=== PATIENT | female | born 1975 | race Caucasian/White ===

== ENCOUNTER 2023-04-06 11:45 | Outpatient (CLI) | payer OTHER, SELFPAY | END 2023-04-06 11:46 | disposition home or self-care (01) | PROVIDERS: PCP Nurse Practitioner Family; Visit Provider Nurse Practitioner Family | DX: I10 Essential (primary) hypertension (principal); E66.9 Obesity, unspecified; E78.5 Hyperlipidemia, unspecified | CPT/HCPCS: 80053; 80061 ==

== ENCOUNTER 2023-05-19 06:17 | Outpatient (CLI) | payer OTHER, SELFPAY ==
--- NOTE | 2023-05-19 06:44 | W.ANESCHARGE ---
Anesthesia Charges Start Date/Time Anesthesia Start Date: 05/19/23 Anesthesia Start Time: 07:02 Stop Date/Time Anesthesia Stop Date: 05/19/23 Anesthesia Stop Time: 07:35
--- NOTE | 2023-05-19 06:44 | PM.ANHP ---
HPI - Pre-Anesthesia History of Present Illness Time Seen by Provider: 06:54 Date Seen: 05/19/23 Date of service: 05/19/23 Reason for visit: screening colonoscopy Source: old records reviewed Review of Systems Status of ROS Reports: 6 or more systems reviewed and unremarkable except as noted in History and below PFS PFS Family History Father Cardiovascular disease Social History (Updated 04/06/23 @ 12:38 by Naomi Mazariegos CNP) Physical activity type: walking and bicycling How many days of moderate to strenuous exercise, like a brisk walk, did you do in the last 7 days: 5 Smoking Status: Current every day smoker Do you use any of these nicotine containing products: Vaping Products Second hand tobacco smoke exposure: No How often do you have a drink containing alcohol: never AUDIT-C Alcohol total score: 0 Non-prescribed substance use: denies use Caffeine: Yes Little interest or pleasure in doing things: several days Feeling down, depressed, or hopeless: several days Meds Home Medications and Allergies Allergies Allergy/AdvReac Type Severity Reaction Status Date / Time No Known Allergy Allergy Unknown Unknown Uncoded 04/05/23 12:35 Exam Const Documenting provider has reviewed patient's vital signs: yes Common normals: no apparent distress, oriented x3, healthy appearing, alert and well nourished General appearance: cooperative and comfortable Orientation/consciousness: Yes awake HENMT Common normals: normocephalic Head and scalp: normocephalic Neck & C-Spine Common normals: full ROM Chest Chest: symmetrical chest wall rise Resp Common normals: normal respiratory effort, no retractions, no use of accessory muscles and clear to auscultation bilaterally Auscultation: clear to auscultation bilaterally Cardio Common normals: regular rate, regular rhythm, S1 normal heart sound, S2 normal heart sound and no murmurs Rate: regular rate Rhythm: regular rhythm Heart sounds: S1 normal and S2 normal Neuro Common normals: oriented x3 Sensorium/orientation: awake and alert Assessment and Plan Assessment and plan (1) Colonoscopy planned: Status: Acute Plan ok to proceed with sedation for colonoscopy
--- NOTE | 2023-05-19 07:40 | W.ANESCHARGE ---
Anesthesia Charges Start Date/Time Anesthesia Start Date: 05/19/23 Anesthesia Start Time: 07:02 Stop Date/Time Anesthesia Stop Date: 05/19/23 Anesthesia Stop Time: 07:35
== END 2023-05-19 06:18 | disposition home or self-care (01) ==
PROVIDERS: PCP Nurse Practitioner Family; Visit Provider Internal Medicine
DX: Z12.11 Encounter for screening for malignant neoplasm of colon (principal); K64.9 Unspecified hemorrhoids; K62.1 Rectal polyp; C18.2 Malignant neoplasm of ascending colon; K56.690 Other partial intestinal obstruction
CPT/HCPCS: 45380; 45381; 45385; 811; 88305; J2704

== ENCOUNTER 2023-06-03 11:55 | Outpatient (CLI) | payer OTHER, SELFPAY ==
[2023-06-06 20:43] LABS: Carcinoembryonic Antigen 3.6 ng/mL (<=3.8)
== END 2023-06-03 11:56 | disposition home or self-care (01) ==
PROVIDERS: PCP Nurse Practitioner Family; Visit Provider Student in an Organized Health Care Education/Training Program
DX: K63.89 Other specified diseases of intestine (principal)
CPT/HCPCS: 36415; 82378

== ENCOUNTER 2023-06-21 07:25 | Outpatient (CLI) | payer OTHER, SELFPAY ==
--- NOTE | 2023-06-21 08:00 | CRLHL7_ITS ---
For Patients: As a result of the Century Cures Act, medical imaging exams and procedure reports are released immediately into your electronic medical record. You may view this report before your referring provider. If you have questions, please contact your health care provider. INDICATION: Colon mass seen on colonoscopy. Evaluate for metastasis.. TECHNIQUE: CT chest, abdomen and pelvis acquired with 106 cc Omnipaque 350 IV contrast. COMPARISON: None. FINDINGS: 2.2 by 1.5 by 2.2 centimeter soft tissue nodule is seen in the anterior superior mediastinum just below thyroid which may represent an enlarged mediastinal lymph node. Heart is normal in size. No pericardial or pleural effusion. No enlarged axillary or hilar adenopathy. No other enlarged mediastinal lymph nodes. Lungs are clear. No suspicious bony lesion in the bony thorax. Liver is top-normal in size measuring 20 centimeters in craniocaudal dimension. There are at least 5 small hypoenhancing lesions in the liver, the largest in segment 2 measuring 8 millimeters. Spleen, pancreas, adrenals and kidneys are within normal limits. Status post cholecystectomy. No enlarged retroperitoneal or pelvic adenopathy. The uterus is present with a large fibroid in the right posterior lateral uterus approximately measuring 5.3 x 5.6 by 4.8 centimeter. Urinary bladder is within normal limits. No abnormally dilated bowel loops to suggest bowel obstruction. There is a enhancing mass in the ascending colon measuring 5.4 x 4.0 by 4.6 centimeter. There is no pericolonic invasion. Appendix is not visualized. Normal terminal ileum. No suspicious bony lesion in the abdomen or pelvis. IMPRESSION: Proximal ascending colonic mass correlates with reported history of colon mass. At least 5 subcentimeter hypo enhancing liver lesions concerning for metastasis. MRI abdomen with IV contrast recommended for better evaluation. Anterior superior mediastinal nodule remains indeterminate may be an enlarged lymph node. Consider ultrasound-guided biopsy. Other findings as described above. Please note that all CT scans at this facility use dose modulation, iterative reconstruction, and/or weight-based dosing when appropriate to reduce radiation dose to as low as reasonably achievable. Dictated by Gera Valadez MD @ 06/21/2023 10:45:25 AM (Electronically Signed)
== END 2023-06-21 07:26 | disposition home or self-care (01) ==
LOC: CT 07:26
PROVIDERS: PCP Nurse Practitioner Family; Visit Provider Student in an Organized Health Care Education/Training Program
DX: K63.89 Other specified diseases of intestine (principal); K76.9 Liver disease, unspecified
CPT/HCPCS: 71260; 74177; Q9967

== ENCOUNTER 2023-07-06 09:31 | Outpatient (CLI) | payer OTHER, SELFPAY ==
--- OUTSIDE RECORDS SUMMARY | 2023-07-06 09:33 | XMS_ITS | Continuity of Care Document ---
Author Name Unknown Organization [facility] Address [address] [place] [address] Phone Care Team Providers Care Internal Communications Specialist Name Role Phone Colton Zimmer Unavailable Unavailable Medications Medication Instructions Dosage Effective Dates (start - stop) Status Comments prednisone 20 mg tablet 1 tab BID 5 days, 1 tablet QAM 5days - Active Procedures Procedure Date Office/Outpatient Visit,[facility] 2018 Results Test Name Date and Time Measure Units Reference Range Abnormal Flag Status Comments Panel Description: PA/Lateral Full Spine Unknow n PALatFS 18:40:33 (See Attached Document) Unknown (See Attached Document) Panel Description: PA/Lateral Full Spine Unknow n Image PA/Lateral Full Spine Advance Directives Directive Yes / No Effective Date File Name No Information Encounters Encounter Description Practice Location Reason(s) For Visit Diagnoses Date Provider Providers Copied on Encounter Office/Outpat ient Visit,, [facility], [address], [place], [place], [id number], [place] tel:[phone] [facility] [place] [facility] Gi[facility]pe Segura. [facility] [place], [address], [place], [place], [id number], [place]. tel:[phone] Referring Provider: Colton Chin, [facility] [address], [place], [address]. tel:[phone] Family History Family Member Type Diagnosis Age At Onset No Information Payers Payer name Insurance type Covered green party ID Noah nation(s) [facility] [id number] Social History Type Description Quantity Date Captured Comments Alcohol Use Details Unknown Caffeine Use Details Unknown Tobacco Use Status Occasional cigarette smoker Smoking Status Heavy tobacco smoker Smoking Tobacco Use Details Cigarette: No Details Available Cigarette: 1 Packs per day Sex Female Vital Signs Date / Time: Height Weight BMI Pulse Rate Blood Pressure Temperature Respiratory Rate Body Surface Area Head Circumference Head Circ. Percentile Wt./Gil. Percentile BMI percentile Pulse Ox Inhaled Ox 1:07 PM 65.50 in 93.803 kg (206.80 lbs) 33.8 9 kg/m eter (2) 85 /min 131/86 mm[Hg] Chief Complaint And Reason For Visit No Information Reason For Referral Reason For Referral No Information History Of Present Illness Encounter Date Complaint History Of Prese nt Illness No Information Functional Status Date Functional Assessmen t No Information Instructions Date Instruction Additional Infor mation No Information Assessments Type Assessment Date assessment Cervicalgia Patient Care Teams Name Effective Dates (start - stop) Status Members No Information
== END 2023-07-06 09:32 | disposition home or self-care (01) ==
PROVIDERS: PCP Nurse Practitioner Family; Visit Provider Nurse Practitioner Family
DX: Z01.818 Encounter for other preprocedural examination (principal)
CPT/HCPCS: 80048

== ENCOUNTER 2023-07-07 10:01 | Outpatient (CLI) | payer OTHER, SELFPAY ==
--- OUTSIDE RECORDS SUMMARY | 2023-07-07 10:03 | XMS_ITS | Continuity of Care Document ---
Author Name Unknown Organization [facility] Address [address] [place] [address] Phone Care Team Providers Care Commercial Painter Name Role Phone Colton Zimmer Unavailable Unavailable Medications Medication Instructions Dosage Effective Dates (start - stop) Status Comments prednisone 20 mg tablet 1 tab BID 5 days, 1 tablet QAM 5days - Active Procedures Procedure Date Office/Outpatient Visit,[facility] 2018 Results Test Name Date and Time [...] Providers Copied on Encounter Office/Outpat ient Visit,, [facility], [address], [place], [place], [id number], [place] tel:[phone] [facility] [place] [facility] Giuseppe Segura. [facility] [place], [address], [place], [place], [id number], [place]. tel:[phone] Referring Provider: Colton Chin, [facility] [address], [place], [address]. tel:[phone] Family History Family Member Type Diagnosis Age At Onset No Information Payers Payer name Insurance type Covered green party ID Noah nation(s) [facility] [id number] Social History Type Description Quantity Date Captured [...]
--- NOTE | 2023-07-07 10:15 | CRLHL7_ITS ---
For Patients: As a result of the Century Cures Act, medical imaging exams and procedure reports are released immediately into your electronic medical record. You may view this report before your referring provider. If you have questions, please contact your health care provider. INDICATION: Mass ascending colon ; Liver lesions. COMPARISON: CT chest, abdomen and pelvis with intravenous contrast June 21, 2023. TECHNIQUE: MRI of the abdomen without and with intravenous contrast; Precontrast T1 and T2 weighted imaging; T2 haste imaging ; Diffusion-weighted imaging; in and out of phase imaging; postcontrast imaging; 15 cc of Dotarem contrast was injected. FINDINGS: Multiple liver lesions. An 8 mm lesion identified in segment 2 of the liver. A 7 mm lesion in the dome of the liver and. A 6 mm lesion identified in segment 7 of the liver. A 5 mm lesion in segment 2 of the liver. All the lesions have high signal on the precontrast T2 haste imaging without any evidence of restriction of diffusion. No obvious postcontrast enhancement identified. No splenic pathology. No pancreatic pathology. Gallbladder appears small. No adrenal pathology. Kidneys are unremarkable. Mass identified in the right colon. IMPRESSION: Multiple liver lesions; indeterminate; no obvious enhancement postcontrast administration; in a patient with presumed colon carcinoma, metastatic disease is still a consideration and a PET-CT is suggested for further assessment. Dictated by Eduardo Pierce MD @ 07/13/2023 5:18:35 AM (Electronically Signed)
--- NOTE | 2023-07-07 11:15 | CRLHL7_ITS ---
For Patients: As a result of the Century Cures Act, medical imaging exams and procedure reports are released immediately into your electronic medical record. You may view this report before your referring provider. If you have questions, please contact your health care provider. INDICATION : History of colon mass. Indeterminate liver lesions. CT chest demonstrated a circumscribed solid mass in the lower midline of the neck. Patient presents for FNA. TECHNIQUE : Due to the deep position of the nodule, FNA could not be performed safely. Comparison : CT 06/21/2023 FINDINGS : There is a solid circumscribed heterogeneously hypoechoic solid nodule with small cystic areas in the midline of the lower neck inferior to the thyroid measuring 3.1 x 1.8 x 2.7 cm. 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 Unfortunately, due to the deep position the nodule, FNA could not be performed safely. Dictated by Kwame Maldonado MD @ 07/07/2023 12:29:35 PM (Electronically Signed)
== END 2023-07-07 10:02 | disposition home or self-care (01) ==
LOC: MRI 10:02
PROVIDERS: PCP Nurse Practitioner Family; Visit Provider Student in an Organized Health Care Education/Training Program
DX: K63.89 Other specified diseases of intestine (principal); K76.9 Liver disease, unspecified; R19.09 Other intra-abdominal and pelvic swelling, mass and lump; R22.1 Localized swelling, mass and lump, neck; E04.1 Nontoxic single thyroid nodule
CPT/HCPCS: 10005; 74183; A9575

== ENCOUNTER 2024-09-06 09:41 | Outpatient (CLI) | payer OTHER, SELFPAY ==
--- OUTSIDE RECORDS SUMMARY | 2024-09-06 09:44 | XMS_ITS | Referral Summary ---
Author Organization [facility] Address [address] [place] [address] Care Team Providers Care [employer] Developer Name Role Phone Naomi Mazariegos NP Primary Care Provider [phone] Encounters Date Type Department Care Team Description 07/30/2024 7:20 AM CDT - 07/30/2024 8:05 AM CDT Surgery [facility] [address] [place] [address] Tasha Fleming MD Colonoscopy with biopsies and polypectomy using forceps 07/30/2024 6:36 AM CDT - 07/30/2024 8:41 AM CDT Hospital Encounter [facility] [address] [place] [address] Tasha Fleming MD Discharge Disposition: Home or Self Care 07/22/2024 Travel from Last 3 Months Allergies No known active allergies Medications oxyCODONE (ROXICODONE) 5 MG tabletIndication s:Polyp of ascending colon, unspecified type Take 1 tablet (5 mg) by mouth every 6 hours as needed for moderate to severe pain 10 tablet Active Additional Information Patient not taking.Reported on 07/30/2024 Active Problems Problem Noted Date Diagnosed Date Polyp of ascending colon 07/19/2023 Social History Tobacco Use Types Packs/Day Years Used Date Smoking Tobacco: Former Other Q uit: 06/26/2023 Smokeless Tobacco: Never Tobacco Cessation:Counseling Given: Not Answered Comments:Vaping products used Alcohol Use Standard Drinks/Week Comments Never 0 (1 standard drink = 0.6 oz pur e alcohol) Adolescent Education Answer Date Record ed Getting School Help Needed Not on file 07/22 Interpersonal Safety Answer Date Record ed Do you feel physically and e motionally safe where you currently live? Yes 07/30/2024 Within the past 12 months, h ave you been hit, slapped, kicked or otherwise physically hurt by someone? No 07/30/2024 Within the past 12 months, h ave you been humiliated or emotionally abused in other ways by your partner or ex-partner? No 07/30/2024 Comments No Sex and Gender Information Value Date Recorded Sex Assigned at Not on file Legal Sex Female 10:26 AM CDT Gender Identity Not on file Sexual Orientation Not on file Last Filed Vital Signs Vital Sign Reading Time Taken Comments Blood Pressure 121/77 07/30/2024 8:35 AM CDT Pulse 81 07/30/2024 8:30 AM CDT Temperature 36.9 ??C (98.4 ??F) 07/21/2023 8:45 AM CD T Respiratory Rate 14 07/30/2024 8:35 AM CDT Oxygen Saturation 100% 07/30/2024 8:35 AM CDT Inhaled Oxygen Concentration - - Weight 90.9 kg (200 lb 8 oz) 07/19/2023 9:21 AM CDT Height 165.1 cm (5' 5) 07/19/2023 9:21 AM CDT Body Mass Index 33.36 07/19/2023 9:21 AM CDT Plan of Treatment Not on file Procedures Procedure Name Priority Date/Time Associated Diagnosis Comments SURGICAL PATHOLOGY EXAM Routine 07/30/2024 7:54 AM CDT COLONOSCOPY, WITH POLYPECTOMY AND BIOPSY 07/30/2024 7:35 AM CDT Screening for colon cancer Personal history of colonic polyps COLONOSCOPY Routine 07/30/2024 7:14 AM CDT GLUCOSE BY METER Routine 07/21/2023 6:20 AM CDT from Last 3 Months or Most Recently Relevant to Health Maintenance Results * Surgical Pathology Exam (07/30/2024 7:54 AM CDT) Case Report Surgical Pathology Report ? Case: [id number] ? Authorizing Provider: ??Tasha Fleming MD ?? Collected: ? 07/30/2024 07:54 AM ? Ordering Location: ? [facility] ?Received: ?07/30/2024 08:14 AM ? [facility] ? Pathologist: ? Isis, Edgardo Tavarez, ? MD ? Specimens: ?? A) - Large Intestine, Colon, Random colon biopsy r/o microscopic colitis ? B) - Large Intestine, Colon, Sigmoid, sigmoid polyp x1 ? 07/31/2024 11:30 AM [facility] Final Diagnosis A: Large intestine, random, biopsy: - Colonic mucosa without diagnostic abnormality. - No sufficient features of colitis (microscopic or otherwise), polyp, dysplasia, or malignancy. B: Large intestine, sigmoid, polyp, biopsy/polypect luba: - Hyperplastic polyp negative for dysplasia and malignancy. 07/31/2024 11:30 AM [facility] Clinical Information Procedure: Colonoscopy with biopsies and polypectomy using forceps 07/31/2024 11:30 AM [facility] Gross Description A(1). Large Intestine, Colon, Random colon biopsy r/o microscopic colitis: The specimen is received in formalin, labeled with the patient's name, medical record number and other identifying information and designated ? random colon biopsy rule out microscopic colitis? . It consists of 5 herrera soft tissue fragments ranging from 0.2-0.3 cm. Entirely submitted in one cassette. B(2). Large Intestine, Colon, Sigmoid, sigmoid polyp x1: The specimen is received in formalin, labeled with the patient's name, medical record number and other identifying information and designated ? sigmoid polyp x 1? . It consists of 2 herrera soft tissue fragments 0.1 cm. Entirely submitted in one cassette. (DIETER Lux (ASCP) 07/30/2024 9:38 AM 07/31/2024 11:30 AM [facility] Microscopic Description A microscopic examination is performed. 07/31/2024 11:30 AM [facility] Performing Labs The technical component of this testing was completed at [facility]. Stain controls for all stains resulted within this report have been reviewed and show appropriate reactivity. 07/31/2024 11:30 AM [facility] Case Images 07/31/2024 11:30 AM [facility] Biopsy COLON STRUCTURE / Unknown 07/30/2024 7:54 AM CDT 07/30/2024 8:14 AM CDT Polyp (morphologic abnormality) SIGMOID COLON PART / Unknown 07/30/2024 8:00 AM CDT 07/30/2024 8:14 AM CDT us Tasha Fleming MD LAB - ALEJANDRA Final Res ult LABORATORY [facility] [address] 1[address] floor, [address] [place] [address], [place] [phone] LABORATORY [facility] [address] [facility] ([facility] floor, no room number) [place] [address], [facility] * COLONOSCOPY (07/30/2024 7:14 AM CDT) [facility] COLONOSCOPY [facility] Patient Name: Jenny CazaresVal Tesfaye ? Procedure Date: 07/30/2024 7:14 AM ? Date of : 1975 ?Admit Type: Outpatient Age: 48 ? Gender: Female Attending MD: TASHA FLEMING MD, ??Total Sedation Time: 17 min continuous bedside 1:1 monitoring, IT 6 min, WT 11 min. Instrument Name: 257 - Pediatric Colonoscope Procedure: ?Colonoscopy Indications: ?High risk colon cancer surveillance: Personal ?history of colonic polyps, S/P laparoscopic right ?colectomy 06/2023. Providers: ?TASHA FLEMING MD (Doctor) Referring MD: ? Medicines: ?Midazolam 3 mg IV, Fentanyl 100 micrograms IV Complications: ?No immediate complications. Procedure: ?Pre-Anesthesia Assessment: ?- Prior to the procedure, a History and Physical ?was performed, and patient medications and ?allergies were reviewed. The patient's tolerance of ?previous anesthesia was also reviewed. The risks ?and benefits of the procedure and the sedation ?options and risks were discussed with the patient. ?All questions were answered, and informed consent ?was obtained. Prior Anticoagulants: The patient has ?taken no anticoagulant or antiplatelet agents. ASA ?Grade Assessment: II - A patient with mild systemic ?disease. After reviewing the risks and benefits, ?the patient was deemed in satisfactory condition to ?undergo the procedure. ?- Prior to the procedure, a History and Physical ?was performed, and patient medications, allergies ?and sensitivities were reviewed. The patient's ?tolerance of previous anesthesia was reviewed. ?- The risks and benefits of the procedure and the ?sedation options and risks were discussed with the ?patient. All questions were answered and informed ?consent was obtained. ?- Patient identification and proposed procedure ?were verified prior to the procedure by the ?physician. The procedure was verified in the ?endoscopy suite. ?- Pre-procedure physical examination revealed no ?contraindication s to sedation. ?- The heart rate, respiratory rate, oxygen ?saturations, blood pressure, adequacy of pulmonary ?ventilation, and response to care were monitored ?throughout the procedure. ?- The physical status of the patient was ?re-assessed after the procedure. ?After obtaining informed consent, the colonoscope ?was passed under direct vision. Throughout the ?procedure, the patient's blood pressure, pulse, and ?oxygen saturations were monitored continuously. The ?Olympus Pediatric Colonoscope Model # [id number]-DR714L, ?Censitrac # [id number] was introduced through the ?anus and advanced to the ileocolonic anastomosis. ?The colonoscopy was performed without difficulty. ?The patient tolerated the procedure well. The ?quality of the bowel preparation was good. ? Findings: ? The perianal and digital rectal examinations were normal. Pertinent ? negatives include normal sphincter tone and no palpable rectal lesions. ? The shannon-terminal ileum appeared normal. ? A 2 mm polyp was found in the sigmoid colon. The polyp was sessile. The ? polyp was removed with a cold biopsy forceps. Resection and retrieval ? were complete. Estimated blood loss was minimal. ? There was evidence of a prior functional end-to-end ileo-colonic ? anastomosis in the transverse colon. This was patent and was ? characterized by healthy appearing mucosa and an intact staple line. The ? anastomosis was traversed. ? The colon (entire examined portion) appeared normal. Biopsies for ? histology were taken with a cold forceps from the entire colon for ? evaluation of microscopic colitis. Estimated blood loss was minimal. ? Non-bleeding internal hemorrhoids were found during retroflexion. ? The exam was otherwise without abnormality on direct and retroflexion ? views. ? Impression: ? - The examined portion of the ileum was normal. ?- One 2 mm polyp in the sigmoid colon, removed with ?a cold biopsy forceps. Resected and retrieved. ?- Patent functional end-to-end ileo-colonic ?anastomosis, characterized by healthy appearing ?mucosa and an intact staple line. ?- The entire examined colon is normal. Biopsied. ?- Non-bleeding internal hemorrhoids. ?- The examination was otherwise normal on direct ?and retroflexion views. Recommendation: ? - Discharge patient to home. ?- Resume previous diet. ?- Continue present medications. ?- Await pathology results. ?- Repeat colonoscopy in 3 years for surveillance ?based on pathology results. ?- Return to my office at appointment to be ?scheduled to management of hemorrhoids ? Procedure Code(s): ? --- Professional --- ? 88913, Colonoscopy, flexible; with biopsy, single or multiple CPT copyright 2021 [employer]. All rights reserved. The codes documented in this report are preliminary and upon mmd unit teacher review may be revised to meet current compliance requirements. TASHA FLEMING MD 07/30/2024 8:14:17 AM I was physically present for the entire viewing portion of the exam. TASHA FLEMING MD Number of Addenda: 0 Note Initiated On: 07/30/2024 7:14 AM MRN: ?[id number] Procedure Date: ? 07/30/2024 7:14:27 AM Scope Withdrawal Time: 0 hours 11 minutes 30 seconds Total Procedure Duration: 0 hours 16 minutes 47 seconds Estimated Blood Loss: ? Scope In: 7:45:59 AM Scope Out: 8:02:46 AM RADIOLOGY RESULTS 07/30/2024 7:14 AM CDT us Tasha Fleming MD PROCEDURES Final Res ult RADIOLOGY RESULTS * Glucose by meter (07/21/2023 6:20 AM CDT) [facility] GLUCOSE BY METER POCT 93 70 - 99 mg/dL 07/21/2023 6:28 AM CDT LABORATORY POC Blood, Capillary BLOOD SPECIMEN / Unknown 07/21/2023 6:20 AM CDT 07/21/2023 6:28 AM CDT us Tasha Fleming MD LAB - BEAKER POCT Final R esult LABORATORY POC [facility] [address] 1[address] floor, [address] [place] [address], [facility] [phone] from Last 3 Months or Most Recently Relevant to Health Maintenance Insurance [facility] Address: [id number] [place] [address] [place] [address] [facility] Address: [address] [address] Advance Directives For more information, please contact: [phone] * Full Code (Latest Code Status on File) Date Activated Date Inactivated Comments 07/19/2023 4:02 PM 07/21/2023 4:23 PM All basic an d advanced life-sustaining interventions are performed as appropriate Question Answer Comments Code status determined by: Discussion with patie nt/ legal decision maker Care Teams [employer] Developer Relationship Specialty Start Date End Date Naomi Mazariegos NP [facility] [address] [place] [address] PCP - General Nurse Practitioner - Family 07/18/23
--- OUTSIDE RECORDS SUMMARY | 2024-09-06 09:44 | XMS_ITS | Encounter Summary ---
Author Organization [facility] Address [address] [place] [address]. [place] [address] Care Team Providers Care Drapery Examiner Name Role Phone Naomi Mazariegos ENVIRONMENTAL MARKETER Primary Care Provider [phone] Reason for Visit * Auth/Cert Specialty Diagnoses / Procedures Referred By Terese pandey Referred To Contact Gastroenterology Diagnoses Screening for colon cancer Personal history of colonic polyps Screening for colon cancer [Z12.11] Personal history of colonic polyps [Z86.0100] Procedures MI COLONOSCOPY W/WO BRUSH/WASH Colonoscopy [facility] [address] [place] [address] Phone: tel:[phone] fax: Referral ID Status Reason Start Date Expiration Date Visits Re quested Visits Authorized [id number] 1 1 Encounter Details Date Type Department Care Team (Late st Contact Info) Description 07/30/2024 7:20 AM CDT - 07/30/2024 8:05 AM CDT Surgery [facility] [address] [place] [address] Tasha Fleming MD COLO & RECTAL SURGERY [address] [address] Colonoscopy with biopsies and polypectomy using forceps Surgery Details Date/Time Status Location OR Service Patient Class Case Cl ass Case Type Trauma Case? 07/30/2024 7:20 AM Posted GI GI B [facility]-Rectal Outpatient Elective Panel 1 Procedure LRB Anes Op Region Wound Class Comments Colonoscopy with biopsies and polypectomy using forceps N/A Moderate Sedation Rectum II-Clean Contaminated Surgeon Surgeon Role Service Panel Tasha Fleming MD Primary Strawn-Rectal 1 documented in this encounter Social History Tobacco Use Types Packs/Day Years Used Date Smoking Tobacco: Former Other Q uit: 06/26/2023 Smokeless Tobacco: Never Comments:Vaping products use d Alcohol Use Standard Drinks/Week Comments Never 0 [...] on file Sexual Orientation Not on file documented as of this encounter Last Filed Vital Signs Vital Sign Reading Time Taken Comments Blood Pressure 149/95 07/30/2024 8:03 AM CDT Pulse 87 07/30/2024 8:03 AM CDT Temperature - - Respiratory Rate 16 07/30/2024 8:03 AM CDT Oxygen Saturation 100% 07/30/2024 8:03 AM CDT Inhaled Oxygen Concentration - - Weight - - Height - - Body Mass Index - - documented in this encounter Discharge Instructions * Discharge Instructions* Aleta Meyers RN - 07/30/2024 8:11 AM CDT The patient has received a copy of the Provation report the doctor has written and discharge instructions have been discussed with the patient and responsible adult. All questions were addressed and answered prior to patient discharge. * Attachments The following attachments cannot be sent through Care Everywhere. * Colon Polyps (Mosotho) * Hemorrhoids: Rubber Band Ligation: General Info (Mosotho) documented in this encounter Medications at Time of Discharge oxyCODONE (ROXICODONE) 5 MG tabletIndications :Polyp of ascending colon, unspecified type Take 1 tablet (5 mg) by mouth every 6 hours as needed for moderate to severe pain 10 tablet 07/21/2023 documented as of this encounter H&P Notes * Tasha Fleming MD - 07/30/2024 7:04 AM CDT Pre-Endoscopy History and Physical Jenny De La Vega Date of : 1975 Age: [age] year old Date of Procedure: 07/30/2024 Primary care provider: Naomi Mazariegos Type of Endoscopy: Colonoscopy Reason for Procedure: H/O polyps Type of Anesthesia Anticipated: Moderate Sedation HPI: Jenny is a 48 year old female who will be undergoing the above procedure. A history and physical has been performed. The patient's medications and allergies have been reviewed. The risks and benefits of the procedure and the sedation options and risks were discussed with the patient. All questions were answered and informed consent was obtained. She denies a personal or family history of anesthesia complications or bleeding disorders. No Known Allergies No current facility-administered medications for this encounter. Patient Active Problem List Diagnosis Polyp of ascending colon Past Medical History: Diagnosis Date Anxiety disorder Essential hypertension, malignant General counseling and advice for contraceptive management Hyperlipidemia Internal hemorrhoids Obesity, unspecified Primary female infertility S/P VSD repair Tobacco use disorder Past Surgical History: Procedure Laterality Date ABDOMEN SURGERY CARDIAC SURGERY 1990 COLONOSCOPY COLONOSCOPY N/A 07/18/2023 Procedure: Colonoscopy with biopsies using jumbo bx forcep; Surgeon: Tasha Fleming MD; Location: GI LAPAROSCOPIC ASSISTED COLECTOMY Right 07/19/2023 Procedure: Laparoscopic Assisted Right Colectomy; Surgeon: Tasha Fleming MD; Location: OR Social History Tobacco Use Smoking status: Former Types: Other Quit date: 06/26/2023 Years since quittin.0 Smokeless tobacco: Never Tobacco comments: Vaping products used Substance Use Topics Alcohol use: Never Family History Problem Relation Age of Onset Colon Cancer No family hx of REVIEW OF SYSTEMS: 5 point ROS negative except as noted above in HPI, including Gen., Resp., CV, GI & system review. PHYSICAL EXAM: There were no vitals taken for this visit. Estimated body mass index is 33.36 kg/m?? as calculated from the following: Height as of 07/19/23: 1.651 m (5' 5). Weight as of 07/19/23: 90.9 kg (200 lb 8 oz). GENERAL APPEARANCE: healthy and alert MENTAL STATUS: alert AIRWAY EXAM: Mallampatti Class I (visualization of the soft palate, fauces, uvula, anterior and posterior pillars) RESP: lungs clear to auscultation - no rales, rhonchi or wheezes CV: regular rates and rhythm IMPRESSION ASA Class 2 - Mild systemic disease PLAN: Plan for colonoscopy. We discussed the risks, benefits and alternatives and the patient wished to proceed. The above has been forwarded to the consulting provider. Katy Fleming MD [facility] July 30, 2024 documented in this encounter Plan of Treatment Not on file documented as of this encounter Procedures Procedure Name Priority Date/Time Associated Diagnosis Comments SURGICAL PATHOLOGY EXAM Routine 07/30/2024 7:54 AM CDT COLONOSCOPY, WITH POLYPECTOMY AND BIOPSY 07/30/2024 7:35 AM CDT Screening for colon cancer Personal history of colonic polyps COLONOSCOPY Routine 07/30/2024 7:14 AM CDT documented in this encounter Results * Surgical Pathology Exam (07/30/2024 7:54 AM CDT) Case Report Surgical Pathology Report ? Case: [id number] ? Authorizing Provider: ??Tasha Fleming MD ?? Collected: ? 07/30/2024 07:54 AM ? Ordering Location: ? [facility] ?Received: ?07/30/2024 08:14 AM ? [facility] ? Pathologist: ? Edgardo Marinelli, ? MD ? Specimens: ?? A) - Large Intestine, Colon, Random colon biopsy r/o microscopic colitis ? B) - Large Intestine, Colon, Sigmoid, sigmoid polyp x1 ? 07/31/2024 11:30 AM CDT LABORATORY Final Diagnosis A: Large intestine, random, biopsy: - Colonic mucosa without diagnostic abnormality. - No sufficient features of colitis (microscopic or otherwise), polyp, dysplasia, or malignancy. B: Large intestine, sigmoid, polyp, biopsy/polypect luba: - Hyperplastic polyp negative for dysplasia and malignancy. 07/31/2024 11:30 AM CDT LABORATORY Clinical Information Procedure: Colonoscopy with biopsies and polypectomy using forceps 07/31/2024 11:30 AM T LABORATORY Gross Description A(1). Large Intestine, Colon, [...] cm. Entirely submitted in one cassette. (DIETER Lxu (ASCP) 07/30/2024 9:38 AM 07/31/2024 11:30 AM CDT LABORATORY Microscopic Description A microscopic examination is performed. 07/31/2024 11:30 AM T LABORATORY Performing Labs The technical component of this testing was completed at [facility]. Stain controls for all stains resulted within this report have been reviewed and show appropriate reactivity. 07/31/2024 11:30 AM CDT LABORATORY Case Images 07/31/2024 11:30 AM T LABORATORY Biopsy COLON STRUCTURE / Unknown 07/30/2024 7:54 AM CDT 07/30/2024 8:14 AM CDT Polyp (morphologic abnormality) SIGMOID COLON PART / Unknown 07/30/2024 8:00 AM CDT 07/30/2024 8:14 AM CDT us Tasha WAHL - ALEJANDRA AUSTIN Final Res ult LABORATORY [facility] [address] 1[address] floor, [address] [place] [address], [place] [phone] LABORATORY [facility] [address] [facility] (1st floor, no room number) [place] [id number], [facility] * COLONOSCOPY (07/30/2024 7:14 AM CDT) [facility] COLONOSCOPY [facility] Patient Name: Jenny De La Vega ? Procedure Date: 07/30/2024 7:14 AM ? [...] continuously. The ?Olympus Pediatric Colonoscope Model # PCF-KC425L, ?[facility] # [id number] was introduced through the ?anus and advanced [...] Procedure Code(s): ? --- Professional --- ? 06595, Colonoscopy, flexible; with biopsy, single or multiple CPT copyright 2021 [employer]. All rights reserved. The codes documented in this report are preliminary and upon central office repairer supervisor review may be revised to meet current compliance requirements. TASHA FLEMING MD 07/30/2024 8:14:17 AM I was physically present for the entire viewing portion of the exam. TASHA FLEMING MD Number of Addenda: 0 Note Initiated On: 07/30/2024 7:14 AM MRN: ?[id number] Procedure Date: ? 07/30/2024 7:14:27 AM Scope Withdrawal Time: 0 hours 11 minutes 30 seconds Total Procedure Duration: 0 hours 16 minutes 47 seconds Estimated Blood Loss: ? Scope In: 7:45:59 AM Scope Out: 8:02:46 AM RADIOLOGY RESULTS 07/30/2024 7:14 AM CDT us Tasha Fleming MD PROCEDURES Final Res ult RADIOLOGY RESULTS documented in this encounter Visit Diagnoses Diagnosis Screening for colon cancer Special screening for malignant neoplasms, colon Personal history of colonic polyps documented in this encounter Administered Medications Inactive Administered Medications - up to 3 most recent administrations Medication Order MAR Action Action Date Dose Rate Site atropine injection 1 mg 1 mg, Intravenous, ONCE PRN, other, Bradycardia, Starting on Mon07/30/24 at 0737, For 1 dose, Intra-procedure benzocaine 20% (HURRICAINE/TOPEX) 20 % spray 0.5 mL 0.5 mL (1 spray), Mouth/Throat, ONCE PRN, sore throat, Starting on Mon07/30/24 at 0737, For 1 dose, Ledbetter throat with 1 spray 5 minutes prior to procedure., Intra-procedure diphenhydrAMINE (BENADRYL) injection 25-50 mg 25-50 mg, Intravenous, ONCE PRN, other, for sedations, dose per provider direction., Administer over 1-2 Minutes, Starting on Mon07/30/24 at 0737, For 1 dose, Intra-procedure EPINEPHrine (Anaphylaxis) (ADRENALIN) injection (vial) 0.1 mg 0.1 mg, Submucosal, ONCE PRN, bleeding, Starting on Mon07/30/24 at 0737, For 1 dose, RN to dilute 1 mL (1 mg) of EPINEPHrine with 9 mL of 0.9% sodium chloride to equal a 0.1 mg/mL concentration. Inject 1 mL (0.1 mg) into submucosa via a sclerotherapy injection needle. Not for direct undiluted intravenous injection (1 mg/mL = 1:1000), Intra-procedure fentaNYL (PF) (SUBLIMAZE) injection 50-100 mcg 50-100 mcg, Intravenous, EVERY 5 MIN PRN, severe pain, If inadequate response may repeat every 3 min PRN severe pain; when verbally requested by provider., Starting on Mon07/30/24 at 0737, Doses can be exceeded under direct oversight of patient by physician., Intra-procedure $Given 07/30/2024 7:41 AM CDT 100 mcg flumazenil (ROMAZICON) injection 0.2 mg 0.2 mg, Intravenous, EVERY 1 MIN PRN, benzodiazepine reversal, If inadequate response after 45 seconds, may repeat 0.2 mg IV every 1 minute PRN over sedation., Administer over 1 Minutes, Starting on Mon07/30/24 at 0737, Give over 15 seconds. Maximum total dose of 1 mg. Continue monitoring until discharge criteria met for a minimum of 2 hours. Use with caution in patients on benzodiazepine therapy., Intra-procedure glucagon injection 0.5 mg 0.5 mg, Intravenous, ONCE PRN, other, gi motility, Starting on Mon07/30/24 at 0737, For 1 dose, Intra-procedure lidocaine (LMX4) cream Topical, EVERY 1 HOUR PRN, pain, with VAD insertion, Starting on Mon07/30/24 at 0810, Apply at least 30 minutes prior to VAD insertion in divided doses as needed for size of site for insertion. MAX Dose: 2.5 g (?? of 5 g tube) Do NOT give if patient has a history of allergy to any local anesthetic or any abigail product. Do NOT use both lidocaine intradermal/subcutaneous injection and the lidocaine cream on the same site., Pre-procedure lidocaine 1 % 0.1-1 mL 0.1-1 mL, Other, EVERY 1 HOUR PRN, mild pain with VAD insertion, Starting on Mon07/30/24 at 0810, MAX dose 1 mL subcutaneous OR intradermal along the side of the vein in divided doses as needed for VAD insertion. Do NOT give if patient has a history of allergy to any local anesthetic or any abigail product. Do NOT use both lidocaine intradermal/subcutaneous injection and the lidocaine cream on the same site., Pre-procedure midazolam (VERSED) injection 0.5-2 mg 0.5-2 mg, Intravenous, EVERY 4 MIN PRN, sedation, If inadequate response may repeat every 4 minutes PRN sedation until desired response; when verbally requested by provider., Starting on Mon07/30/24 at 0737, Doses can be exceeded under direct oversight of patient by physician. This drug may cause significant respiratory depression. Monitor respiratory status and vital signs carefully for 1 hour after each dose., Intra-procedure $Given 07/30/2024 7:46 AM CDT 1 mg $Given 07/30/2024 7:41 AM CDT 2 mg naloxone (NARCAN) injection 0.2 mg 0.2 mg, Intravenous, EVERY 2 MIN PRN, opioid reversal, Starting on Mon07/30/24 at 0737, Administer intravenous route when available and notify provider when administered. For unintended sedation or respiratory depression if all of the below criteria are met: ~ respiratory rate LESS than or EQUAL to 8. ~SaO2 less than 92% and or/end-tidal CO2 is greater than 50. ~ the patient is receiving an opioid, has unintended sedations assessed as RASS (-3), and is currently not on mechanical ventilation. RASS scale moderate (-3) is movement or eye opening to voice but no eye contact. Patient Monitoring Once the patient has demonstrated a response to the naloxone, continue to monitor respiratory rate, depth, oxygen saturation and end-tidal CO2 (if available) every 15 minutes x 2, then every 30 minutes x 2, then every 1 hour x 1 after each naloxone dose. Consider transfer to ICU if patient respiratory parameters have not improved after 4 naloxone doses., Intra-procedure naloxone (NARCAN) injection 0.2 mg 0.2 mg, Intramuscular, EVERY 2 MIN PRN, opioid reversal, Starting on Mon07/30/24 at 0737, Administer intramuscular if an intravenous route is not available and notify provider when administered. For unintended sedation or respiratory depression if all of the below criteria are met: ~ respiratory rate LESS than or EQUAL to 8. ~SaO2 less than 92% and or/end-tidal CO2 is greater than 50. ~ the patient is receiving an opioid, has unintended sedations assessed as RASS (-3), and is currently not on mechanical ventilation. RASS scale moderate (-3) is movement or eye opening to voice but no eye contact. Patient Monitoring Once the patient has demonstrated a response to the naloxone, continue to monitor respiratory rate, depth, oxygen saturation and end-tidal CO2 (if available) every 15 minutes x 2, then every 30 minutes x 2, then every 1 hour x 1 after each naloxone dose. Consider transfer to ICU if patient respiratory parameters have not improved after 4 naloxone doses., Intra-procedure naloxone (NARCAN) injection 0.4 mg 0.4 mg, Intravenous, EVERY 2 MIN PRN, opioid reversal, Starting on Mon07/30/24 at 0737, Administer intravenous route when available and notify provider when administered. For unintended sedation or respiratory depression if all of the below criteria are met: ~ respiratory rate LESS than or EQUAL to 8. ~ SaO2 less than 92% and or/end-tidal CO2 is greater than 50. ~ the patient is receiving an opioid, has unintended sedation assessed as RASS (-4) or (-5) and patient is currently not on mechanical ventilation. RASS scale (-4) is deep sedation with no response to voice but movement or eye opening to physical stimulation. RASS scale (-5) is unarousable. Patient Monitoring Once the patient has demonstrated a response to the naloxone, continue to monitor respiratory rate, depth, oxygen saturation and end-tidal CO2 (if available) every 15 minutes x 2, then every 30 minutes x 2, then every 1 hour x 1 after each naloxone dose. Consider transfer to ICU if patient respiratory parameters have not improved after 4 naloxone doses., Intra-procedure naloxone (NARCAN) injection 0.4 mg 0.4 mg, Intramuscular, EVERY 2 MIN PRN, opioid reversal, Starting on Mon07/30/24 at 0737, Administer intramuscular if an intravenous route is not available and notify provider when administered. For unintended sedation or respiratory depression if all of the below criteria are met: ~ respiratory rate LESS than or EQUAL to 8. ~ SaO2 less than 92% and or/end-tidal CO2 is greater than 50. ~ the patient is receiving an opioid, has unintended sedation assessed as RASS (-4) or (-5) and patient is currently not on mechanical ventilation. RASS scale (-4) is deep sedation with no response to voice but movement or eye opening to physical stimulation. RASS scale (-5) is unarousable. Patient Monitoring Once the patient has demonstrated a response to the naloxone, continue to monitor respiratory rate, depth, oxygen saturation and end-tidal CO2 (if available) every 15 minutes x 2, then every 30 minutes x 2, then every 1 hour x 1 after each naloxone dose. Consider transfer to ICU if patient respiratory parameters have not improved after 4 naloxone doses., Intra-procedure ondansetron (ZOFRAN ODT) ODT tab 4 mg 4 mg, Oral, EVERY 6 HOURS PRN, nausea, vomiting, Starting on Mon07/30/24 at 0810, This is Step 1 of nausea and vomiting management. If nausea not resolved in 15 minutes, go to Step 2 prochlorperazine (COMPAZINE). Do not push through foil backing. Peel back foil and gently remove. Place on tongue immediately. Administration with liquid unnecessary With dry hands, peel back foil backing and gently remove tablet. Do not push oral disintegrating tablet through foil backing. Administer immediately on tongue and oral disintegrating tablet dissolves in seconds, then swallow with saliva. Liquid not required. ondansetron (ZOFRAN) injection 4 mg 4 mg, Intravenous, ONCE PRN, nausea, vomiting, Administer over 2-5 Minutes, Starting on Mon07/30/24 at 0810, For 1 dose, Give in ENDO pre procedure prep area., Pre-procedure ondansetron (ZOFRAN) injection 4 mg 4 mg, Intravenous, EVERY 6 HOURS PRN, nausea, vomiting, Administer over 2-5 Minutes, Starting on Mon07/30/24 at 0810, This is Step 1 of nausea and vomiting management. If nausea not resolved in 15 minutes, go to Step 2 prochlorperazine (COMPAZINE). prochlorperazine (COMPAZINE) injection 10 mg 10 mg, Intravenous, EVERY 6 HOURS PRN, nausea, vomiting, Administer over 1-2 Minutes, Starting on Mon07/30/24 at 0810, This is Step 2 of nausea and vomiting management. If nausea not resolved in 15-30 minutes, Notify provider. prochlorperazine (COMPAZINE) tablet 10 mg 10 mg, Oral, EVERY 6 HOURS PRN, nausea, vomiting, Starting on Mon07/30/24 at 0810, This is Step 2 of nausea and vomiting management. If nausea not resolved in 15-30 minutes, Notify provider. simethicone (MYLICON) suspension 133 mg 133 mg, Oral, ONCE PRN, other, gas bubbles, Starting on Mon07/30/24 at 0737, For 1 dose, Give via endoscope, Intra-procedure $Given by Other 07/30/2024 7:52 AM CDT 133 mg sodium chloride (PF) 0.9% PF flush 3 mL 3 mL, Intracatheter, EVERY 8 HOURS, First dose on Mon07/30/24 at 0830, to lock peripheral IV dormant line, Pre-procedure sodium chloride (PF) 0.9% PF flush 3 mL 3 mL, Intracatheter, EVERY 1 MIN PRN, line flush, other, to ensure patency or to lock dormant line, Starting on Mon07/30/24 at 0810, Pre-procedure sodium chloride (PF) 0.9% PF flush 3 mL 3 mL, Intravenous, EVERY 1 MIN PRN, line flush, Starting on Mon07/30/24 at 0737, Indications: for Peripheral IV flush post IV meds, Intra-procedureIndications:for Peripheral IV flush post IV meds sodium chloride 0.9% BOLUS 500 mL Intravenous, 500 mL, ONCE PRN, at 500 mL/hr, Administer over 1 Hours, other, hypotension, Starting on Mon07/30/24 at 0737, For 1 dose, Intra-procedure documented in this encounter Active and Recently Administered Medications Times are shown in CDT. Scheduled Medication Order 07/28/2024 07/29/2024 07/30/2024 sodium chloride (PF) 0.9% PF flush 3 mL 3 mL, Intracatheter, EVERY 8 HOURS, First dose on Mon07/30/24 at 0830, to lock peripheral IV dormant line, Pre-procedure 0830 (Canceled Entry - Provider: Orders Generic Provider - Comment: Automatically canceled at discontinue of medication order) PRN Medication Order 07/28/2024 07/29/2024 07/30/2024 atropine injection 1 mg 1 mg, Intravenous, ONCE PRN, other, Bradycardia, Starting on Mon07/30/24 at 0737, For 1 dose, Intra-procedure benzocaine 20% (HURRICAINE/TOPEX) 20 % spray 0.5 mL 0.5 mL (1 spray), Mouth/Throat, ONCE PRN, sore throat, Starting on Mon07/30/24 at 0737, For 1 dose, Ledbetter throat with 1 spray 5 minutes prior to procedure., Intra-procedure diphenhydrAMINE (BENADRYL) injection 25-50 mg 25-50 mg, Intravenous, ONCE PRN, other, for sedations, dose per provider direction., Administer over 1-2 Minutes, Starting on Mon07/30/24 at 0737, For 1 dose, Intra-procedure EPINEPHrine (Anaphylaxis) (ADRENALIN) injection (vial) 0.1 mg 0.1 mg, Submucosal, ONCE PRN, bleeding, Starting on Mon07/30/24 at 0737, For 1 dose, RN to dilute 1 mL (1 mg) of EPINEPHrine with 9 mL of 0.9% sodium chloride to equal a 0.1 mg/mL concentration. Inject 1 mL (0.1 mg) into submucosa via a sclerotherapy injection needle. Not for direct undiluted intravenous injection (1 mg/mL = 1:1000), Intra-procedure fentaNYL (PF) (SUBLIMAZE) injection 50-100 mcg 50-100 mcg, Intravenous, EVERY 5 MIN PRN, severe pain, If inadequate response may repeat every 3 min PRN severe pain; when verbally requested by provider., Starting on Mon07/30/24 at 0737, Doses can be exceeded under direct oversight of patient by physician., Intra-procedure 0741 ($Given - Provi roz: Sue Sierra RN) flumazenil (ROMAZICON) injection 0.2 mg 0.2 mg, Intravenous, EVERY 1 MIN PRN, benzodiazepine reversal, If inadequate response after 45 seconds, may repeat 0.2 mg IV every 1 minute PRN over sedation., Administer over 1 Minutes, Starting on Mon07/30/24 at 0737, Give over 15 seconds. Maximum total dose of 1 mg. Continue monitoring until discharge criteria met for a minimum of 2 hours. Use with caution in patients on benzodiazepine therapy., Intra-procedure flumazenil (ROMAZICON) injection 0.2 mg 0.2 mg, Intravenous, EVERY 1 MIN PRN, benzodiazepine reversal, over sedation, Administer over 1 Minutes, Starting on Mon07/30/24 at 0810, For 12 hours, Give over 15 seconds. If inadequate response after 45 seconds, may repeat up to a MAX total dose of 1 mg. Continue monitoring until discharge criteria are met for a minimum of 2 hours Use with caution in patients on benzodiazepine therapy. glucagon injection 0.5 mg 0.5 mg, Intravenous, ONCE PRN, other, gi motility, Starting on Mon07/30/24 at 0737, For 1 dose, Intra-procedure lidocaine (LMX4) cream Topical, EVERY 1 HOUR PRN, pain, with VAD insertion, Starting on Mon07/30/24 at 0810, Apply at least 30 minutes prior to VAD insertion in divided doses as needed for size of site for insertion. MAX Dose: 2.5 g (?? of 5 g tube) Do NOT give if patient has a history of allergy to any local anesthetic or any abigail product. Do NOT use both lidocaine intradermal/subcutaneous injection and the lidocaine cream on the same site., Pre-procedure lidocaine 1 % 0.1-1 mL 0.1-1 mL, Other, EVERY 1 HOUR PRN, mild pain with VAD insertion, Starting on Mon07/30/24 at 0810, MAX dose 1 mL subcutaneous OR intradermal along the side of the vein in divided doses as needed for VAD insertion. Do NOT give if patient has a history of allergy to any local anesthetic or any abigail product. Do NOT use both lidocaine intradermal/subcutaneous injection and the lidocaine cream on the same site., Pre-procedure midazolam (VERSED) injection 0.5-2 mg 0.5-2 mg, Intravenous, EVERY 4 MIN PRN, sedation, If inadequate response may repeat every 4 minutes PRN sedation until desired response; when verbally requested by provider., Starting on Mon07/30/24 at 0737, Doses can be exceeded under direct oversight of patient by physician. This drug may cause significant respiratory depression. Monitor respiratory status and vital signs carefully for 1 hour after each dose., Intra-procedure 0741 ($Given - Provi roz: Sue Sierra RN)0746 ($Given - Provider: Sue Sierra RN) naloxone (NARCAN) injection 0.2 mg(Linked Group 1) 0.2 mg, Intravenous, EVERY 2 MIN PRN, opioid reversal, Starting on Mon07/30/24 at 0737, Administer intravenous route when available and notify provider when administered. For unintended sedation or respiratory depression if all of the below criteria are met: ~ respiratory rate LESS than or EQUAL to 8. ~SaO2 less than 92% and or/end-tidal CO2 is greater than 50. ~ the patient is receiving an opioid, has unintended sedations assessed as RASS (-3), and is currently not on mechanical ventilation. RASS scale moderate (-3) is movement or eye opening to voice but no eye contact. Patient Monitoring Once the patient has demonstrated a response to the naloxone, continue to monitor respiratory rate, depth, oxygen saturation and end-tidal CO2 (if available) every 15 minutes x 2, then every 30 minutes x 2, then every 1 hour x 1 after each naloxone dose. Consider transfer to ICU if patient respiratory parameters have not improved after 4 naloxone doses., Intra-procedure naloxone (NARCAN) injection 0.2 mg(Linked Group 1) 0.2 mg, Intramuscular, EVERY 2 MIN PRN, opioid reversal, Starting on Mon07/30/24 at 0737, Administer intramuscular if an intravenous route is not available and notify provider when administered. For unintended sedation or respiratory depression if all of the below criteria are met: ~ respiratory rate LESS than or EQUAL to 8. ~SaO2 less than 92% and or/end-tidal CO2 is greater than 50. ~ the patient is receiving an opioid, has unintended sedations assessed as RASS (-3), and is currently not on mechanical ventilation. RASS scale moderate (-3) is movement or eye opening to voice but no eye contact. Patient Monitoring Once the patient has demonstrated a response to the naloxone, continue to monitor respiratory rate, depth, oxygen saturation and end-tidal CO2 (if available) every 15 minutes x 2, then every 30 minutes x 2, then every 1 hour x 1 after each naloxone dose. Consider transfer to ICU if patient respiratory parameters have not improved after 4 naloxone doses., Intra-procedure naloxone (NARCAN) injection 0.4 mg(Linked Group 1) 0.4 mg, Intravenous, EVERY 2 MIN PRN, opioid reversal, Starting on Mon07/30/24 at 0737, Administer intravenous route when available and notify provider when administered. For unintended sedation or respiratory depression if all of the below criteria are met: ~ respiratory rate LESS than or EQUAL to 8. ~ SaO2 less than 92% and or/end-tidal CO2 is greater than 50. ~ the patient is receiving an opioid, has unintended sedation assessed as RASS (-4) or (-5) and patient is currently not on mechanical ventilation. RASS scale (-4) is deep sedation with no response to voice but movement or eye opening to physical stimulation. RASS scale (-5) is unarousable. Patient Monitoring Once the patient has demonstrated a response to the naloxone, continue to monitor respiratory rate, depth, oxygen saturation and end-tidal CO2 (if available) every 15 minutes x 2, then every 30 minutes x 2, then every 1 hour x 1 after each naloxone dose. Consider transfer to ICU if patient respiratory parameters have not improved after 4 naloxone doses., Intra-procedure naloxone (NARCAN) injection 0.4 mg(Linked Group 1) 0.4 mg, Intramuscular, EVERY 2 MIN PRN, opioid reversal, Starting on Mon07/30/24 at 0737, Administer intramuscular if an intravenous route is not available and notify provider when administered. For unintended sedation or respiratory depression if all of the below criteria are met: ~ respiratory rate LESS than or EQUAL to 8. ~ SaO2 less than 92% and or/end-tidal CO2 is greater than 50. ~ the patient is receiving an opioid, has unintended sedation assessed as RASS (-4) or (-5) and patient is currently not on mechanical ventilation. RASS scale (-4) is deep sedation with no response to voice but movement or eye opening to physical stimulation. RASS scale (-5) is unarousable. Patient Monitoring Once the patient has demonstrated a response to the naloxone, continue to monitor respiratory rate, depth, oxygen saturation and end-tidal CO2 (if available) every 15 minutes x 2, then every 30 minutes x 2, then every 1 hour x 1 after each naloxone dose. Consider transfer to ICU if patient respiratory parameters have not improved after 4 naloxone doses., Intra-procedure ondansetron (ZOFRAN ODT) ODT tab 4 mg(Linked Group 2) 4 mg, Oral, EVERY 6 HOURS PRN, nausea, vomiting, Starting on Mon07/30/24 at 0810, This is Step 1 of nausea and vomiting management. If nausea not resolved in 15 minutes, go to Step 2 prochlorperazine (COMPAZINE). Do not push through foil backing. Peel back foil and gently remove. Place on tongue immediately. Administration with liquid unnecessary With dry hands, peel back foil backing and gently remove tablet. Do not push oral disintegrating tablet through foil backing. Administer immediately on tongue and oral disintegrating tablet dissolves in seconds, then swallow with saliva. Liquid not required. ondansetron (ZOFRAN) injection 4 mg 4 mg, Intravenous, ONCE PRN, nausea, vomiting, Administer over 2-5 Minutes, Starting on Mon07/30/24 at 0810, For 1 dose, Give in ENDO pre procedure prep area., Pre-procedure ondansetron (ZOFRAN) injection 4 mg(Linked Group 2) 4 mg, Intravenous, EVERY 6 HOURS PRN, nausea, vomiting, Administer over 2-5 Minutes, Starting on Mon07/30/24 at 0810, This is Step 1 of nausea and vomiting management. If nausea not resolved in 15 minutes, go to Step 2 prochlorperazine (COMPAZINE). prochlorperazine (COMPAZINE) injection 10 mg(Linked Group 3) 10 mg, Intravenous, EVERY 6 HOURS PRN, nausea, vomiting, Administer over 1-2 Minutes, Starting on Mon07/30/24 at 0810, This is Step 2 of nausea and vomiting management. If nausea not resolved in 15-30 minutes, Notify provider. prochlorperazine (COMPAZINE) tablet 10 mg(Linked Group 3) 10 mg, Oral, EVERY 6 HOURS PRN, nausea, vomiting, Starting on Mon07/30/24 at 0810, This is Step 2 of nausea and vomiting management. If nausea not resolved in 15-30 minutes, Notify provider. simethicone (MYLICON) suspension 133 mg (COMPLETED) 133 mg, Oral, ONCE PRN, other, gas bubbles, Starting on Mon07/30/24 at 0737, For 1 dose, Give via endoscope, Intra-procedure 0752 ($Given by Othe r - Provider: Sue Sierra RN - Comment: via scope) sodium chloride (PF) 0.9% PF flush 3 mL 3 mL, Intracatheter, EVERY 1 MIN PRN, line flush, other, to ensure patency or to lock dormant line, Starting on Mon07/30/24 at 0810, Pre-procedure sodium chloride (PF) 0.9% PF flush 3 mL 3 mL, Intravenous, EVERY 1 MIN PRN, line flush, Starting on Mon07/30/24 at 0737, Indications: for Peripheral IV flush post IV meds, Intra-procedure sodium chloride 0.9% BOLUS 500 mL Intravenous, 500 mL, ONCE PRN, at 500 mL/hr, Administer over 1 Hours, other, hypotension, Starting on Mon07/30/24 at 0737, For 1 dose, Intra-procedure Linked Groups Order Group 1: naloxone (NARCAN) injection 0.2 mgJump to med 0.2 mg, Intravenous, EVERY 2 MIN PRN, opioid reversal, Starting on Mon07/30/24 at 0737, Administer intravenous route when available and notify provider when administered. For unintended sedation or respiratory depression if all of the below criteria are met: ~ respiratory rate LESS than or EQUAL to 8. ~SaO2 less than 92% and or/end-tidal CO2 is greater than 50. ~ the patient is receiving an opioid, has unintended sedations assessed as RASS (-3), and is currently not on mechanical ventilation. RASS scale moderate (-3) is movement or eye opening to voice but no eye contact. Patient Monitoring Once the patient has demonstrated a response to the naloxone, continue to monitor respiratory rate, depth, oxygen saturation and end-tidal CO2 (if available) every 15 minutes x 2, then every 30 minutes x 2, then every 1 hour x 1 after each naloxone dose. Consider transfer to ICU if patient respiratory parameters have not improved after 4 naloxone doses., Intra- procedure Or naloxone (NARCAN) injection 0.4 mgJump to med 0.4 mg, Intravenous, EVERY 2 MIN PRN, opioid reversal, Starting on Mon07/30/24 at 0737, Administer intravenous route when available and notify provider when administered. For unintended sedation or respiratory depression if all of the below criteria are met: ~ respiratory rate LESS than or EQUAL to 8. ~ SaO2 less than 92% and or/end-tidal CO2 is greater than 50. ~ the patient is receiving an opioid, has unintended sedation assessed as RASS (-4) or (-5) and patient is currently not on mechanical ventilation. RASS scale (-4) is deep sedation with no response to voice but movement or eye opening to physical stimulation. RASS scale (-5) is unarousable. Patient Monitoring Once the patient has demonstrated a response to the naloxone, continue to monitor respiratory rate, depth, oxygen saturation and end-tidal CO2 (if available) every 15 minutes x 2, then every 30 minutes x 2, then every 1 hour x 1 after each naloxone dose. Consider transfer to ICU if patient respiratory parameters have not improved after 4 naloxone doses., Intra-procedure Or naloxone (NARCAN) injection 0.2 mgJump to med 0.2 mg, Intramuscular, EVERY 2 MIN PRN, opioid reversal, Starting on Mon07/30/24 at 0737, Administer intramuscular if an intravenous route is not available and notify provider when administered. For unintended sedation or respiratory depression if all of the below criteria are met: ~ respiratory rate LESS than or EQUAL to 8. ~SaO2 less than 92% and or/end-tidal CO2 is greater than 50. ~ the patient is receiving an opioid, has unintended sedations assessed as RASS (-3), and is currently not on mechanical ventilation. RASS scale moderate (-3) is movement or eye opening to voice but no eye contact. Patient Monitoring Once the patient has demonstrated a response to the naloxone, continue to monitor respiratory rate, depth, oxygen saturation and end-tidal CO2 (if available) every 15 minutes x 2, then every 30 minutes x 2, then every 1 hour x 1 after each naloxone dose. Consider transfer to ICU if patient respiratory parameters have not improved after 4 naloxone doses., Intra- procedure Or naloxone (NARCAN) injection 0.4 mgJump to med 0.4 mg, Intramuscular, EVERY 2 MIN PRN, opioid reversal, Starting on Mon07/30/24 at 0737, Administer intramuscular if an intravenous route is not available and notify provider when administered. For unintended sedation or respiratory depression if all of the below criteria are met: ~ respiratory rate LESS than or EQUAL to 8. ~ SaO2 less than 92% and or/end-tidal CO2 is greater than 50. ~ the patient is receiving an opioid, has unintended sedation assessed as RASS (-4) or (-5) and patient is currently not on mechanical ventilation. RASS scale (-4) is deep sedation with no response to voice but movement or eye opening to physical stimulation. RASS scale (-5) is unarousable. Patient Monitoring Once the patient has demonstrated a response to the naloxone, continue to monitor respiratory rate, depth, oxygen saturation and end-tidal CO2 (if available) every 15 minutes x 2, then every 30 minutes x 2, then every 1 hour x 1 after each naloxone dose. Consider transfer to ICU if patient respiratory parameters have not improved after 4 naloxone doses., Intra- procedure Group 2: ondansetron (ZOFRAN ODT) ODT tab 4 mgJump to med 4 mg, Oral, EVERY 6 HOURS PRN, nausea, vomiting, Starting on Mon07/30/24 at 0810, This is Step 1 of nausea and vomiting management. If nausea not resolved in 15 minutes, go to Step 2 prochlorperazine (COMPAZINE). Do not push through foil backing. Peel back foil and gently remove. Place on tongue immediately. Administration with liquid unnecessary With dry hands, peel back foil backing and gently remove tablet. Do not push oral disintegrating tablet through foil backing. Administer immediately on tongue and oral disintegrating tablet dissolves in seconds, then swallow with saliva. Liquid not required. Or ondansetron (ZOFRAN) injection 4 mgJump to med 4 mg, Intravenous, EVERY 6 HOURS PRN, nausea, vomiting, Administer over 2-5 Minutes, Starting on Mon07/30/24 at 0810, This is Step 1 of nausea and vomiting management. If nausea not resolved in 15 minutes, go to Step 2 prochlorperazine (COMPAZINE). Group 3: prochlorperazine (COMPAZINE) injection 10 mgJump to med 10 mg, Intravenous, EVERY 6 HOURS PRN, nausea, vomiting, Administer over 1-2 Minutes, Starting on Mon07/30/24 at 0810, This is Step 2 of nausea and vomiting management. If nausea not resolved in 15-30 minutes, Notify provider. Or prochlorperazine (COMPAZINE) tablet 10 mgJump to med 10 mg, Oral, EVERY 6 HOURS PRN, nausea, vomiting, Starting on Mon07/30/24 at 0810, This is Step 2 of nausea and vomiting management. If nausea not resolved in 15- 30 minutes, Notify provider. documented in this encounter Care Teams Drapery Examiner Relationship Specialty Start Date End Date Naomi Mazariegos NP [facility] [address] [place] [address] PCP - General Nurse Practitioner - Family 07/18/23 documented as of this encounter
--- OUTSIDE RECORDS SUMMARY | 2024-09-06 09:44 | XMS_ITS | Encounter Summary ---
Author Organization [facility] Address [address] [place] [address]. [place] [address] Care Team Providers Care Medical Record Administrator Name Role Phone Naomi Mazariegos PENSION MANAGER Primary Care Provider [phone] Encounter Details Date Type Department Care Team (Latest Contact Info) Description 07/22/2024 Travel Social History Tobacco Use Types Packs/Day Years Used Date Smoking Tobacco: Former Other Q uit: 06/26/2023 Smokeless Tobacco: Never Comments:Vaping products use d Alcohol Use Standard Drinks/Week Comments Never 0 (1 standard drink = 0.6 oz pur e alcohol) Adolescent Education Answer Date Record ed Getting School Help Needed Not on file 07/22 Comments No Sex and Gender Information Value Date Recorded Sex Assigned at Not on file Legal Sex Female 10:26 AM CDT Gender Identity Not on file Sexual Orientation Not on file documented as of this encounter Plan of Treatment Not on file documented as of this encounter Visit Diagnoses Not on filedocumented in this encounter Care Teams Medical Record Administrator Relationship Specialty Start Date End Date Naomi Mazariegos PENSION MANAGER [facility] [address] [place] [address] PCP - General Nurse Practitioner - Family 07/18/23 documented as of this encounter
--- OUTSIDE RECORDS SUMMARY | 2024-09-06 09:44 | XMS_ITS | Clinical Summary ---
Author Organization [facility] Address [address] [place] [id number] Care Team Providers Care Crew Boat Operator Name Role Phone Naomi Mazariegos CASEWORKER Primary Care Provider [phone] Allergies No known active allergies Medications oxyCODONE (ROXICODONE) 5 MG tabletIndication s:Polyp of ascending colon, unspecified type Take 1 tablet (5 mg) by mouth every 6 hours as needed for moderate to severe pain 10 tablet Active Additional Information Patient not taking.Reported on 07/30/2024 Active Problems Problem Noted Date Diagnosed Date Polyp of ascending colon 07/19/2023 Encounters Date Type Department Care Team Description 07/30/2024 7:20 AM CDT - 07/30/2024 8:05 AM CDT Surgery [facility] [address] [place] [address] Tasha Fleming MD Colonoscopy with biopsies and polypectomy using forceps 07/30/2024 6:36 AM CDT - 07/30/2024 8:41 AM CDT Hospital Encounter [facility] [address] [place] [address] Tasha Fleming MD Discharge Disposition: Home or Self Care 07/22/2024 Travel from Last 3 Months Family History Medical History Relation Comments Colon Cancer No family hx of Social History Tobacco Use Types Packs/Day Years [...] 07/19/2023 9:21 AM CDT Plan of Treatment Health Maintenance Due Date Last Done Comments ADVANCE CARE PLANNING 1976 ANNUAL REVIEW OF HM ORDERS 1976 CT COLONOGRAPHY 1976 FIT 1976 FLEX SIG 1976 MAMMO SCREENING 1976 YEARLY PREVENTIVE VISIT 1976 sDNA (Cologuard) 1976 HIV SCREENING 1991 HEPATITIS C SCREENING 1994 HEPATITIS B IMMUNIZATION (1 of 3 - 19+ 3-dose series) 1995 PAP 1997 LIPID 2016 PHQ-2 (once per calendar year) 2023 COVID-19 Vaccine ( season) 2024 INFLUENZA VACCINE (#1) 2024 08/20/2020 GLUCOSE 07/21/2026 07/21/2023, 07/01, 07/19/2023, Additional history exists COLONOSCOPY 07/30/2027 07/30/2024, 10/0 10/2023, 07/18/2023, Additional history exists COLORECTAL CANCER SCREENING 07/30/2027 DTAP/TDAP/TD IMMUNIZATION (3 - Td or Tdap) 08/20/2030 08/20/2020, 12/06/2010 RSV VACCINE (1 - 1-dose 75+ series) 2051 HPV IMMUNIZATION Aged Out No longer e ligible based on patient's age to complete this topic MENINGITIS IMMUNIZATION Aged Out No l onger eligible based on patient's age to complete this topic Pneumococcal Vaccine: Pediatrics (0 to 5 Years) and At-Risk Patients (6 to 64 Years) Aged Out No longer eligible based on patient's age to complete this topic RSV MONOCLONAL ANTIBODY Aged Out No l onger eligible based on patient's age to complete this topic Procedures Procedure Name Priority Date/Time Associated Diagnosis [...] Case Report Surgical Pathology Report ? Case: [id number] ? Authorizing Provider: ??Tasha Fleming MD ?? Collected: ? 07/30/2024 07:54 AM ? Ordering Location: ? [facility] ?Received: ?07/30/2024 08:14 AM ? [facility] ? Pathologist: ? Isis, Edgardo Tavarez, ? [...] for dysplasia and malignancy. [facility]2024 11:[facility] Information Procedure: Colonoscopy with biopsies [...] component of this testing was completed at [facility]. Stain controls for [...] - ALEJANDRA AUSTIN Final Res ult LABORATORY [facility] [address] 1st floor, [address] [place] [address], [facility] [phone] [facility] [address] Lab (1st floor, no room number) [place] [address], [facility] * COLONOSCOPY (07/30/2024 7:14 AM CDT) [facility] COLONOSCOPY [facility] Patient Name: Jenny Contrerasarpaninessa ? Procedure Date: 07/30/2024 7:14 AM ? [...] and ?oxygen saturations were monitored continuously. The ?SeeClickFix Pediatric Colonoscope Model # [id number]-AS771O, ?[employer]ensit[employer] # [id number] was introduced through the ?anus and advanced [...] Procedure Code(s): ? --- Professional --- ? 46476, Colonoscopy, flexible; with biopsy, single or multiple CPT copyright 2021 [employer]. All rights reserved. The codes documented in this report are preliminary and upon tax commissioner review may be revised to meet current compliance requirements. TASHA FLEMING MD 07/30/2024 8:14:17 AM I was physically present for the entire viewing portion of the exam. TASHA FLEMING MD Number of Addenda: 0 Note Initiated On: 07/30/2024 7:14 AM MRN: ?[id number] Procedure Date: ? 07/30/2024 7:14:27 AM Scope Withdrawal Time: 0 hours 11 minutes 30 seconds Total Procedure Duration: 0 hours 16 minutes 47 seconds Estimated Blood Loss: ? Scope In: 7:45:59 AM Scope Out: 8:02:46 AM RADIOLOGY RESULTS 07/30/2024 7:14 AM CDT us Tasha Fleming MD PROCEDURES Final Res ult RADIOLOGY RESULTS * Glucose by meter (07/21/2023 6:20 AM CDT) GLUCOSE BY METER POCT 93 70 - 99 mg/dL 07/21/2023 6:28 AM CDT LABORATORY POC Blood, Capillary BLOOD SPECIMEN / Unknown 07/21/2023 6:20 AM CDT 07/21/2023 6:28 AM CDT us Tasha Fleming MD LAB - BEAKER POCT Final R esult Performing Organization Address City/[facility]/ZIP Co de Phone Number LABORATORY POC [facility] [address] 1[address] floor, [address] [place] [address], [facility] [phone] from Last 3 Months or Most Recently Relevant to Health Maintenance Insurance [employer] [facility] Address: [facility] [address] [place] [address] [place] [address] [address] [address] [employer] [facility] Address: [address] [address] Advance Directives For more information, please contact: [phone] * Full Code (Latest Code Status on File) Date Activated Date Inactivated Comments 07/19/2023 4:02 PM 07/21/2023 4:23 PM All basic an d advanced life-sustaining interventions are performed as appropriate Question Answer Comments Code status determined by: Discussion with vickey nt/ legal decision maker Care Teams Crew Boat Operator Relationship Specialty Start Date End Date Naomi Mazariegos NP [facility] [address] [place] [address] PCP - General Nurse Practitioner - Family 07/18/23
--- OUTSIDE RECORDS SUMMARY | 2024-09-06 09:44 | XMS_ITS | Encounter Summary ---
Author Organization [facility] Address [address] [place] [address]. [place] [address] Care Team Providers Care Chemical Cell Changer Name Role Phone Naomi Mazariegos MILL STENCILER Primary Care Provider [phone] Reason for Visit * Auth/Cert Specialty Diagnoses / Procedures Referred By Terese pandey Referred To Contact Gastroenterology Diagnoses Screening for colon cancer Personal history of colonic polyps Screening for colon cancer [Z12.11] Personal history of colonic polyps [Z86.0100] Procedures OR COLONOSCOPY W/WO BRUSH/WASH Colonoscopy [facility] [address] [place] [address] Phone: tel:[phone] fax: Referral ID Status Reason Start Date Expiration Date Visits Re quested Visits Authorized [id number] 1 1 Encounter Details Date Type Department Care Team (Latest Contact Info) Description 07/30/2024 6:36 AM CDT - 07/30/2024 8:41 AM CDT Hospital Encounter [facility] [address] [place] [address] Tasha Fleming MD COLO & RECTAL SURGERY [address] [id number] Discharge Disposition: Home or Self Care Social History Tobacco Use Types Packs/Day Years [...] Pulse 81 07/30/2024 8:30 AM CDT Temperature - - Respiratory Rate 14 07/30/2024 8:35 AM CDT [...] sent through Care Everywhere. * Colon Polyps (Chadian) * Hemorrhoids: Rubber Band Ligation: General Info (Chadian) documented in this encounter Medications at Time [...] N/A 07/18/2023 Procedure: Colonoscopy with biopsies using Revolymermbo bx forcep; Surgeon: Tasha Fleming MD; Location: [...] Case Report Surgical Pathology Report ? Case: [id number] ? Authorizing Provider: ??Tasha Fleming MD ?? Collected: ? 07/30/2024 07:54 AM ? Ordering Location: ? [facility] ?Received: ?07/30/2024 08:14 AM ? [facility] [place] ? Pathologist: ? Edgardo Marinelli, ? MD ? Specimens: ?? A) - Large Intestine, Colon, Random colon biopsy r/o microscopic colitis ? B) - Large Intestine, Colon, Sigmoid, sigmoid polyp x1 ? 07/31/2024 11:30 AM [facility] Final Diagnosis A: Large intestine, random, biopsy: - Colonic mucosa without diagnostic abnormality. - No sufficient features of colitis (microscopic or otherwise), polyp, dysplasia, or malignancy. B: Large intestine, sigmoid, polyp, biopsy/polypect luba: - Hyperplastic polyp negative for dysplasia and malignancy. 07/31/2024 11:30 AM [facility] Clinical Information Procedure: Colonoscopy with biopsies and polypectomy using forceps 07/31/2024 11:30 AM [facility] Gross Description A(1). Large Intestine, Colon, [...] microscopic examination is performed. 07/31/2024 11:30 AM CDT LABORATORY Performing Labs The technical component of this testing was completed at [facility]. Stain controls for all stains resulted within this report have been reviewed and show appropriate reactivity. 07/31/2024 11:30 AM CDT LABORATORY Case Images 07/31/2024 11:30 AM CDT LABORATORY Biopsy COLON STRUCTURE / Unknown 07/30/2024 7:54 AM CDT 07/30/2024 8:14 AM CDT Polyp (morphologic abnormality) SIGMOID COLON PART / Unknown 07/30/2024 8:00 AM CDT 07/30/2024 8:14 AM CDT us Tasha Fleming MD LAB - [facility] AP Final Res ult LABORATORY [facility] [address] 1[address] floor, [address] [place] [address], [facility] [phone] LABORATORY [facility] [address] (1st floor, no room number) [place] [address], [facility] * COLONOSCOPY (07/30/2024 7:14 AM CDT) COLONOSCOPY [facility] Patient Name: Jenny De La Vega ? [...] and ?oxygen saturations were monitored continuously. The ?Set.fm Pediatric Colonoscope Model # PCF-PT113N, ?Censitrac # [id number] was introduced through the ?anus and advanced [...] Procedure Code(s): ? --- Professional --- ? 13215, Colonoscopy, flexible; with biopsy, single or multiple CPT copyright 2021 [employer]. All rights reserved. The codes documented in this report are preliminary and upon ear mold laboratory technician review may be revised to meet current compliance requirements. TASHA FLEMING MD 07/30/2024 8:14:17 AM I was physically present for the entire viewing portion of the exam. TASHA FLEMING MD Number of Addenda: 0 Note Initiated On: 07/30/2024 7:14 AM MRN: ?[id number] Procedure Date: ? 07/30/2024 7:14:27 AM Scope Withdrawal Time: 0 hours 11 minutes 30 seconds Total Procedure Duration: 0 hours 16 minutes 47 seconds Estimated Blood Loss: ? Scope In: 7:45:59 AM Scope Out: 8:02:46 AM RADIOLOGY RESULTS 07/30/2024 7:14 AM CDT us Tasha Fleming MD PROCEDURES Final Res ult RADIOLOGY RESULTS documented in this encounter Visit Diagnoses Not on filedocumented in this encounter Administered Medications Inactive Administered [...] on Mon07/30/24 at 0737, For 1 dose, Kerrick throat with 1 spray 5 minutes prior to procedure., Intra-procedure diphenhydrAMINE (BENADRYL) injection 25-50 mg 25-50 mg, Intravenous, ONCE PRN, other, for sedations, dose per provider direction., Administer over 1-2 Minutes, Starting on Mon07/30/24 at 736, For 1 dose, Intra-procedure EPINEPHrine (Anaphylaxis) (ADRENALIN) injection (vial) 0.1 mg 0.1 mg, Submucosal, ONCE PRN, bleeding, Starting on Mon07/30/24 at 07, For 1 dose, RN to dilute 1 [...] on Mon07/30/24 at 0737, For 1 dose, Kerrick throat with 1 spray 5 minutes prior [...] dose., Intra-procedure 0741 ($Given - Provi roz: uSe Sierra RN)0746 ($Given - Provider: Sue Sierra [...] provider. documented in this encounter Care Teams Chemical Cell Changer Relationship Specialty Start Date End Date Naomi Mazariegos NP [facility] [address] [place] [address] PCP - General Nurse Practitioner - Family 07/18/23 documented as of this encounter
--- OUTSIDE RECORDS SUMMARY | 2024-09-06 09:44 | XMS_ITS | Continuity of Care Document ---
Author Organization [facility] Address [address] [place] [address] Phone Care Team Providers Care Gear Tooth Lapping Machine Operator Name Role Phone Colton Zimmer Unavailable Unavailable Medications Medication Instructions Dosage Effective Dates (start - stop) Status Comments prednisone 20 mg tablet 1 tab BID 5 days, 1 tablet QAM 5days - Active Procedures Procedure Date Office/Outpatient Visit,[facility] 2018 Results Test Name Date and [...] Providers Copied on Encounter Office/Outpat ient Visit,, [facility], [address], [place], [place], [id number], [place] tel:[phone] [facility] [place] [facility] Giuseppe Segura. [facility], [address], [place], [place], [id number], [place]. tel:[phone] Referring Provider: Colton Chin, [facility] [address], [place], [address]. tel:[phone] Family History Family Member Type Diagnosis Age At Onset No Information Payers Payer name Insurance type Covered libertarian ID Noah nation(s) No Information Social History Type Description Quantity Date Captured [...]
--- NOTE | 2024-09-06 09:45 | CRLHL7_ITS ---
For Patients: As a result of the Century Cures Act, medical imaging exams and procedure reports are released immediately into your electronic medical record. You may view this report before your referring provider. If you have questions, please contact your health care provider. BILATERAL SCREENING MAMMOGRAM WITH COMPUTER-AIDED DETECTION AND TOMOSYNTHESIS TECHNIQUE: CC and MLO views were obtained. These mammographic images have been obtained using full-field digital technique. These mammographic images were interpreted with the benefit of computer-aided detection. Breast tomosynthesis was used in this interpretation. COMPARISON FILM: 04/23/19. FINDINGS: There are scattered areas of fibroglandular density. IMPRESSION: There is no radiographic evidence for malignancy. ASSESSMENT: BI-RADS Category 2: Benign RECOMMENDATION: Routine screening mammogram in 1 year. A lay language report of this examination will be provided to the patient. KWAME GARZA M.D. Diagnostic Radiologist [email or web address] Transcribed: 09/12/2024, 3:[address]/Dictated by: Kwame Garza MD @ 09/12/2024 11:09:00 AM (Electronically Signed)
== END 2024-09-06 09:42 | disposition home or self-care (01) ==
LOC: MAMMO 09:42
PROVIDERS: PCP Nurse Practitioner Family; Visit Provider Nurse Practitioner Family
DX: Z12.31 Encounter for screening mammogram for malignant neoplasm of breast (principal)
CPT/HCPCS: 77063; 77067